=== PATIENT | male | born 1985 | race Caucasian/White ===

== ENCOUNTER 2017-08-21 06:14 | Emergency (ER) | payer OTHER ==
[~2017-08-21] VITALS: Ht 182.9 cm; Wt 77.1 kg
[~2017-08-21 06:14] MED LIST: HYDACE5 PO; HYDACE5325 PO; OXYACE5T PO
[2017-08-21] MEDS ORDERED: Bactrim 400-801 EACH PO (07:18)
[2017-08-21] MEDS ORDERED: Mupirocin22 GM TOP (07:18)
== END 2017-08-21 07:14 | disposition home or self-care (01) ==
LOC: ER 06:14
DX: S60.414A Abrasion of right ring finger, initial encounter (principal); L08.9 Local infection of the skin and subcutaneous tissue, unspecified; F17.210 Nicotine dependence, cigarettes, uncomplicated; X58.XXXA Exposure to other specified factors, initial encounter
CPT/HCPCS: 10060; 73140; 99283

== ENCOUNTER 2020-09-13 10:06 | Emergency (ER) | payer OTHER ==
[~2020-09-13] VITALS: Ht 182.9 cm; Wt 77.1 kg
== END 2020-09-13 13:43 | disposition home or self-care (01) ==
LOC: ER 10:06
DX: M54.31 Sciatica, right side (principal); Z87.891 Personal history of nicotine dependence
CPT/HCPCS: 96372; 99283-25; A9270; J1170